=== PATIENT | male | born 1995 | race Caucasian/White ===

== ENCOUNTER 2017-03-30 20:22 | Emergency (ER) | payer OTHER ==
[~2017-03-30] VITALS: Ht 167.6 cm; Wt 69.0 kg
[~2017-03-30 20:22] MED LIST: OMEP20CA9 PO; ONDA4TAB35 PO; RANI150T9 PO
[2017-03-30 20:27] VITALS: Ht 167.6 cm; Wt 69.0 kg
--- NOTE | 2017-03-30 21:11 | ERD ---
ER Documentation Chief Complaint Date/Time DATE: 03/30/17 TIME: 21:00 Chief Complaint loss of weight since 1 month, anxiety, hx adhd HPI 21-year-old male who presents emergency department for multiple complaints including loss of weight for about a month, anxiety, polyuria, dizziness. Mother is insisting urine test and blood tests. Denies chest pain, shortness of breath, difficulty breathing, abdominal pain, fever, chills. No known drug allergies. Past medical history of prediabetes, ADHD. Surgical history: Denies. Not taking any prescription medication at this time. Medication: Used to take ranitidine. ROS All systems reviewed and are negative except as per history of present illness. Medications Home Meds Active Scripts Lorazepam* (Lorazepam*) 1 Mg Tablet, 1 MG PO Q8, #10 TAB Prov:TITANICOLE HOBBS 03/31/17 Ondansetron Hcl* (Zofran* ODT) 4 mg -ODT Tab.disper, 4 MG PO Q6 Y for NAUSEA AND /OR VOMITING, #10 TAB Prov:JONATHAN MUÑOZ PA-C 12/01/15 Ranitidine Hcl* (Zantac*) 150 Mg Tablet, 150 MG PO BID Y for EPIGASTRIC PAIN, # 30 TAB Prov:JONATHAN MUÑOZ PA-C 12/01/15 Omeprazole* (Prilosec*) 20 Mg Capsule.dr, 20 MG PO BID, #30 CAP Prov:JONATHAN MUÑOZ PA-C 12/01/15 Allergies Allergies: Coded Allergies: No Known Drug Allergy (Verified Allergy, Mild, 12/21/11) PMhx/Soc Medical and Surgical Hx: pt denies Surgical Hx History of Surgery: No Anesthesia Reaction: No Hx Neurological Disorder: No Hx Respiratory Disorders: No Hx Cardiac Disorders: No Hx Psychiatric Problems: Yes (ADHD) Hx Miscellaneous Medical Probl: No Hx Alcohol Use: No Hx Substance Use: Yes (Marijuana daily unk when last used) Hx Tobacco Use: No Smoking Status: Never smoker Physical Exam Vitals Vital Signs Date Time Temp Pulse Resp B/P Pulse Ox O2 Delivery O2 Flow Rate FiO2 03/31/17 01:25 98.3 77 20 115/68 99 03/30/17 20:27 98.3 92 20 119/74 99 Physical Exam Const: [] Head: Atraumatic Eyes: Normal Conjunctiva ENT: Normal External Ears, Nose and Mouth. Neck: Full range of motion..~ No meningismus. Resp: Clear to auscultation bilaterally Cardio: Regular rate and rhythm, no murmurs Abd: Soft, non tender, non distended. Normal bowel sounds Skin: No petechiae or rashes Back: No midline or flank tenderness Ext: No cyanosis, or edema Neur: Awake and alert x 4. Psych: Normal Mood and Affect. Denies visual/auditory hallucinations/ delusions. Not suicidal. Not homicidal. Has the capacity to decide for himself. Has good support system at home. Lives with his mother. Result Diagram: 03/30/17210803/30/172108 Results 24 hrs Laboratory Tests Test 03/30/17 21:09 03/30/17 23:12 White Blood Count 8.510^3/ul Red Blood Count 5.0810^6/ul Hemoglobin 15.3g/dl Hematocrit 46.2% Mean Corpuscular Volume 90.9fl Mean Corpuscular Hemoglobin 30.1pg Mean Corpuscular Hemoglobin Concent 33.1g/dl Red Cell Distribution Width 12.7% Platelet Count 12813^3/UL Mean Platelet Volume 10.1fl Neutrophils % 53.7% Lymphocytes % 34.5% Monocytes % 6.8% Eosinophils % 4.2% Basophils % 0.6% Nucleated Red Blood Cells % 0.0/100WBC Neutrophils # 4.610^3/ul Lymphocytes # 3.010^3/ul Monocytes # 0.610^3/ul Eosinophils # 0.410^3/ul Basophils # 0.110^3/ul Nucleated Red Blood Cells # 0.010^3/ul Sodium Level 143mmol/L Potassium Level 4.4mmol/L Chloride Level 101mmol/L Carbon Dioxide Level 29mmol/L Anion Gap 17 Blood Urea Nitrogen 12mg/dl Creatinine 0.87mg/dl Glucose Level 100mg/dl Calcium Level 10.0mg/dl Total Bilirubin 0.2mg/dl Direct Bilirubin 0.00mg/dl Indirect Bilirubin 0.2mg/dl Aspartate Amino Transf (AST/SGOT) 26IU/L Alanine Aminotransferase (ALT/SGPT) 33IU/L Alkaline Phosphatase 80IU/L Total Protein 8.7g/dl Albumin 5.1g/dl Globulin 3.60g/dl Albumin/Globulin Ratio 1.41 Urine Color YELLOW Urine Clarity CLEAR Urine pH 5.0 Urine Specific [place] 1.018 Urine Ketones NEGATIVEmg/dL Urine Nitrite NEGATIVEmg/dL Urine Bilirubin NEGATIVEmg/dL Urine Urobilinogen NEGATIVEmg/dL Urine Leukocyte Esterase NEGATIVELeu/ul Urine Hemoglobin NEGATIVEmg/dL Urine Glucose NEGATIVEmg/dL Urine Total Protein NEGATIVEmg/dl Urine Opiates Screen Negative Urine Barbiturates Negative Urine Amphetamines Screen Negative Urine Benzodiazepines Screen Positive Urine Cocaine Screen Negative Urine Cannabinoids Positive Procedures/MDM Examination: Please see physical examination. Disease process, medical treatment was explained to the patient and family member. They verbalized understanding and agreed with the diagnostic tests, medical treatment, and follow-up care. Blood works: Reviewed. Urinalysis: Reviewed. Urine drug: Reviewed. Treatment: Re-evaluation: Denies headache, dizziness, blurred vision, neck pain, shoulder pain, chest pain, back pain, abdominal pain, nausea, vomiting. No episode of emesis in the emergency department. Lung sounds are clear to auscultation. There is no abdominal tenderness. Denies visual/auditory hallucinations/ delusions. Not suicidal. Not homicidal. Has the capacity to decide for himself. Has good support system at home. Lives with his mother. Consultation: None. Differential diagnosis: Multiple complaints versus anxiety Medical decision making: Discharge with a final diagnosis of anxiety. Medications prescribed are the following: Ativan. Benadryl. Patient and family member are made aware of the side effects and adverse reactions of the medications prescribed. Instructed on when to seek emergent and medical attention in case allergic/anaphylactic reactions or severe side effects and or adverse reactions to medications. Patient and family member verbalized understanding. Patient instructed Instructed to follow-up with his PCP in 24-48 hours. Instructed to Call 911 for chest pain, shortness of breath. Advised to come back here in ED as soon as possible for severity of symptoms which includes but not limited to: any new symptoms; shortness of breath/difficulty of breathing; cardiovascular changes; severe gastrointestinal symptoms; signs and symptoms of bleeding and or infection; signs of compartment syndrome/neurovascular changes; neurological changes/deficits. Patient and family member verbalized understanding. Upon discharge, patient is alert and oriented x 4, speaks full and clear sentences, denies pain, has no neurological deficits, has no neurovascular deficits, difficulty of breathing. Breathing even and unlabored. Lung sounds are clear to auscultation. Not in distress. Appears comfortable. Ambulatory with steady gait. Appears satisfied with care provided here in ED. Departure Diagnosis: Primary Impression: Multiple complaints Additional Impression: Anxiety Condition: Stable Additional Instructions: Follow-up with primary care physician the next 24-48 hours. Come back here in the emergency department for any new symptoms or any worsening of symptoms. All questions and concerns are answered. Patient and his mother verbalized understanding and agreed with the plan of care NICOLE CULVER Mar 30, 2017 21:11
[2017-03-30 21:22] LABS: BASOPHIL # 0.1 10^3/ul (0.0-0.1); BASOPHILS % 0.6 % (0.0-2.0); EOSINOPHILS # 0.4 10^3/ul (0.0-0.5); EOSINOPHILS % 4.2 % (0.0-7.0); HEMATOCRIT 46.2 % (42.0-52.0); HEMOGLOBIN 15.3 g/dl (14.0-18.0); LYMPHOCYTES % 34.5 % (18.0-55.0); MEAN CORPUSCULAR HEMOGLOBIN 30.1 pg (29.0-33.0); MEAN CORPUSCULAR HGB CONC 33.1 g/dl (32.0-37.0); MEAN CORPUSCULAR VOLUME 90.9 fl (72.0-104.0); MEAN PLATELET VOLUME 10.1 fl (7.4-10.4); MONOCYTE # 0.6 10^3/ul (0.3-0.9); MONOCYTES % 6.8 % (0.0-13.0); NEUTROPHIL # 4.6 10^3/ul (1.6-7.5); NEUTROPHILS % 53.7 % (30.0-74.0); PLATELET COUNT 273 10^3/UL (140-415); RED BLOOD COUNT 5.08 10^6/ul (4.70-6.10); RED CELL DISTRIBUTION WIDTH 12.7 % (11.5-14.5); WHITE BLOOD COUNT 8.5 10^3/ul (4.8-10.8)
[2017-03-30 21:48] LABS: ALBUMIN 5.1 g/dl (3.3-4.9); ALBUMIN/GLOBULIN RATIO 1.41; BILIRUBIN,INDIRECT 0.2 mg/dl (0-1.1); BILIRUBIN,TOTAL 0.2 mg/dl (0.2-1.3); CREATININE 0.87 mg/dl (0.61-1.24); POTASSIUM 4.4 mmol/L (3.5-5.1); TOTAL PROTEIN 8.7 g/dl (6.1-8.1)
[2017-03-30 23:44] LABS: ADD UMIC NO; UR ASCORBIC ACID NEGATIVE (NEGATIVE); UR BILIRUBIN (Dip) NEGATIVE (NEGATIVE); UR BLOOD (Dip) NEGATIVE (NEGATIVE); UR CLARITY CLEAR (CLEAR); UR COLOR YELLOW (YELLOW); UR GLUCOSE (Dip) NEGATIVE (NEGATIVE); UR KETONES (Dip) NEGATIVE (NEGATIVE); UR LEUKOCYTE ESTERASE (Dip) NEGATIVE Leu/ul (NEGATIVE); UR NITRITE (Dip) NEGATIVE (NEGATIVE); UR SPECIFIC GRAVITY (Dip) 1.018 (1.003-1.030); UR TOTAL PROTEIN (Dip) NEGATIVE (NEGATIVE); UR UROBILINOGEN (Dip) NEGATIVE (NEGATIVE)
[2017-03-31 00:11] LABS: BARBITURATES Negative (NEGATIVE); BENZODIAZEPINES Positive (NEGATIVE); CANNABINOIDS Positive (NEGATIVE); COCAINE Negative (NEGATIVE); OPIATES Negative (NEGATIVE)
[2017-03-31] MEDS ORDERED: LORA1TAB PO (00:38)
[2017-03-31 01:25] VITALS: BP 115/68; PULSE 77; RESP 20; TEMP 98.3
== END 2017-03-31 01:25 | disposition home or self-care (01) ==
LOC: FTE 20:22
DX: F41.9 Anxiety disorder, unspecified (principal); R42 Dizziness and giddiness
CPT/HCPCS: 80053; 80307; 81003; 85025; Z7502; 99283

== ENCOUNTER 2018-09-20 16:13 | Emergency (ER) | payer OTHER ==
[~2018-09-20] VITALS: Ht 172.7 cm; Wt 66.0 kg
[~2018-09-20 16:13] MED LIST changes: +LORA1TAB PO; +RANI150T35 PO; -RANI150T9 PO
[2018-09-20 16:14] VITALS: BP 116/78; PULSE 63; RESP 18; Ht 172.7 cm; Wt 66.0 kg
[2018-09-20] MEDS ORDERED: KETOROLAC 30 MG INJ IM STA (17:28)
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
[2018-09-20] MEDS ORDERED: LIDOCAINE 1% (MDV) 10 ML INJ INJ STA (17:40)
[2018-09-20] MEDS ORDERED: LIDOCAINE 1% (MDV) 20 ML INJ INJ SCH (18:00)
[2018-09-20] MEDS ORDERED: HYDR-4011 PO (20:13)
== END 2018-09-20 20:23 | disposition home or self-care (01) ==
LOC: FTE 16:13
DX: S01.511A Laceration without foreign body of lip, initial encounter (principal); F90.9 Attention-deficit hyperactivity disorder, unspecified type; S02.2XXA Fracture of nasal bones, initial encounter for closed fracture; S80.02XA Contusion of left knee, initial encounter; S80.01XA Contusion of right knee, initial encounter; Y04.8XXA Assault by other bodily force, initial encounter
CPT/HCPCS: 70450; 70486; 96372; J1885; Z7502; Z7610

== ENCOUNTER 2019-02-02 23:41 | Emergency (ER) | payer SELFPAY ==
[~2019-02-02] VITALS: Ht 177.8 cm; Wt 70.4 kg
[~2019-02-02 23:41] MED LIST changes: +HYDR-4011 PO
[2019-02-03 00:08] VITALS: BP 107/57; PULSE 65; RESP 18; Ht 177.8 cm; Wt 70.4 kg
== END 2019-02-03 01:30 | disposition left against medical advice (07) ==
LOC: FTE 23:41
DX: Z53.21 Procedure and treatment not carried out due to patient leaving prior to being seen by health care provider (principal)